=== PATIENT | female | born 2000 | race Caucasian/White ===

== ENCOUNTER 2022-04-28 20:17 | Outpatient (CLI) | payer OTHER, SELFPAY ==
[2022-04-28 20:57] VITALS: BMI 32.3
[2022-04-28 21:03] LABS: Microscopic, Urine URINE MICROSCOPIC (MICROSCOPIC)
[2022-04-28 21:04] LABS: Appearance,Urine CLEAR (Clear); Bilirubin,Urine Negative (Negative); Blood, Urine Negative (Negative); Color,Urine YELLOW (Yellow); Glucose,Urine (UA) Negative (Negative); Ketones,Urine Negative (Negative); Leukocyte Esterase,Urine Negative (Negative); Nitrate,Urine Negative (Negative); Protein,Urine Negative (Negative); Urobilinogen,Urine 0.2 EU/dl (0.2)
[2022-04-28 21:15] LABS: Amphetamine/Metha Screen,Urine Negative ng/ml (<1000)
[2022-04-28 21:16] LABS: Barbiturates Screen,Urine Negative ng/ml (<200); Benzodiazepines Screen,Urine Negative ng/ml (<200)
[2022-04-28 21:17] VITALS: BP 133/65; PULSE 77; RESP 18; TEMP 36.7; BMI 32.3
[2022-04-28 21:17] LABS: Cannabinoid Screen,Urine Positive ng/ml (<50); Cocaine Screen,Urine Negative ng/ml (<300)
[2022-04-28 21:18] LABS: Methadone Screen,Urine Negative ng/ml (<300)
[2022-04-28 21:19] LABS: Opiate Screen,Urine Negative ng/ml (<300); Phencyclidine Screen,Urine Negative ng/ml (<25)
[2022-04-28 21:35] LABS: Amorphous Sediment,Urine 1+ /lpf; Bacteria,Urine Trace /lpf; RBC,Urine Occasional #/hpf (0-3); WBC,Urine Occasional #/hpf (0-3)
== END 2022-04-28 21:34 | disposition home or self-care (01) ==
LOC: OBOUT 20:21 → OB 20:21
PROVIDERS: Visit Provider Obstetrics & Gynecology
DX: O26.892 Other specified pregnancy related conditions, second trimester (principal); Z3A.22 22 weeks gestation of pregnancy; R10.32 Left lower quadrant pain
CPT/HCPCS: 80305; 81001; G0463

== ENCOUNTER 2022-05-11 23:48 | Emergency (ER) | payer OTHER, SELFPAY ==
[2022-05-12 00:04] VITALS: BP 154/85; PULSE 121; RESP 18; TEMP 36.6; O2SAT 100; BMI 34.1
[2022-05-12 00:17] LABS: Coronavirus 19, PCR Not Detected (NotDetected); Influenza A, PCR Not Detected (NotDetected); Influenza B, PCR Not Detected (NotDetected); Microscopic, Urine URINE MICROSCOPIC (MICROSCOPIC)
[2022-05-12 00:19] LABS: Appearance,Urine SL CLOUDY (Clear); Bilirubin,Urine Negative (Negative); Blood, Urine Negative (Negative); Color,Urine YELLOW (Yellow); Glucose,Urine (UA) Negative (Negative); Ketones,Urine Negative (Negative); Leukocyte Esterase,Urine Negative (Negative); Nitrate,Urine Negative (Negative); PH,Urine 6.5 (5.0-8.5); Protein,Urine Negative (Negative); Specific Gravity, Urine 1.025 (1.005-1.030); Urobilinogen,Urine 0.2 EU/dl (0.2)
[2022-05-12 00:25] LABS: Bacteria,Urine Trace /lpf; Squamous Epithelial Cell,Urine Occasional #/hpf (0-5); WBC,Urine Occasional #/hpf (0-3)
[2022-05-12 00:26] LABS: Strep Scrn Group A (Rapid) Negative (Negative)
--- NOTE | 2022-05-12 00:42 | HMH.EDURI ---
Discharge Plan Disposition Patient Disposition: Home, Self-Care Chief Complaint: Upper Respiratory Infection Prescriptions Prescriptions: No Action phentermine [Adipex-P] 37.5 mg tablet 37.5 mg PO DAILY Qty: 30 0RF Rx Instructions: must administer 30 minutes before or 1-2 hours after breakfast Referrals Follow up/Referrals: Provider,MD Delroy [Primary Care Provider] - See instructions Nima Juan MD [Staff Physician] - See instructions Clinical Impressions Clinical Impression: Upper respiratory infection, Instructions Patient Instructions: DI for Viral Upper Respiratory Infection -- Adult Discharge ED Provider: Antoine Albrecht URI/Sore Throat HPI General Chief Complaint: Upper Respiratory Infection Stated Complaint: dry cough,MAYA,vomiting,sore ,runnynose,throat Time Seen by Provider: 05/12/22 00:42 Mode of Arrival: Ambulatory Source of Information: Patient and Medical Record Limitations: No Limitations Description of Symptoms (Recalled from ER Triage Doc. by RN): Pt c/o sore throat, headache, bodyaches, runny nose, fever and that everyone in her family currently has the flu. History of Present Illness HPI Narrative: achey with uri sx and exposure to flu - is 7 months Complaint: fever and cough Onset (ago): day(s) Duration: intermittent Severity: moderate Able to tolerate fluids by mouth: Yes Context: sick contacts Related Data Previous Rx's Medication Instructions Recorded phentermine 37.5 mg tablet 37.5 mg PO DAILY #30 tabs 03/25/20 (Adipex-P) Allergies Allergy/AdvReac Type Severity Reaction Status Date / Time penicillin G Allergy Mild Rash Verified 03/25/20 14:20 PFSH PFSH Social History Smoking Status: Former smoker alcohol intake: never substance use type: denies use current occupational status: unemployed Travel in the last 8 weeks: None household members: family housing: house ROS Obtained: Yes All systems reviewed & no additional complaints except as documented Physical Exam General General appearance: alert Head Head exam: normocephalic Eye Eye exam: Present PERRL and EOMI; Absent scleral icterus ENT ENT exam: Present normal oropharynx, mucous membranes moist and TM's normal bilaterally Neck Neck exam: Present full ROM Respiratory Respiratory exam: Present normal lung sounds bilaterally; Absent respiratory distress Cardiovascular Cardiovascular exam: Present regular rate Abdominal Exam Abdominal exam: Present soft Extremities Exam Extremities exam: Present full ROM Neurological Exam Neurological exam: Present alert, oriented X3 and CN II-XII intact; Absent motor sensory deficit Psychiatric Psychiatric exam: Present normal affect Skin Skin exam: Absent rash Medical Decision Making Medical Records Medical records reviewed: Yes I reviewed the patient's medical records. Jarad Inquiry Pt receiving controlled substance: No Vital Signs: 05/12/22 00:04 Temperature 98 F Temperature Source Oral Pulse Rate [Apical] 121 H Respiratory Rate 18 Blood Pressure [Right Arm] 154/85 H Blood Pressure Mean [Right Arm] 108 Blood Pressure Source [Right Arm] Automatic Cuff Blood Pressure Position [Right Arm] Sitting 02 Sat by Pulse Oximetry 100 Oxygen Delivery Method Room Air Lab Data Lab results reviewed: Yes I reviewed the patient's lab results. Lab Results 05/12/22 00:00: SARS-CoV-2 (PCR) Not detected, Influenza A Untype (PCR) Not detected, Influenza Type B (PCR) Not detected 05/12/22 00:00: Group A Strep Rapid Negative 05/12/22 00:00: Urine Color Yellow, Urine Appearance Sl cloudy, Urine pH 6.5, Ur Specific [place] 1.025, Urine Protein Negative, Urine Glucose (UA) Negative, Urine Ketones Negative, Urine Blood Negative, Urine Nitrate Negative, Urine Bilirubin Negative, Urine Urobilinogen 0.2, Ur Leukocyte Esterase Negative, Urine RBC None, Urine WBC Occasional, Ur Squamous Epith Cells Occasional, Urine Bacteria Trac
--- NOTE | 2022-05-12 01:10 | PC.NURSE ---
heart tones detected and noted to be 145.
[2022-05-12 01:11] LABS: Adenovirus,PCR Not Detected (NotDetected); Bordetella Pertussis Not Detected (NotDetected); Chlamydophila Pneumoniae, PCR Not Detected (NotDetected); Coronavirus 19, PCR Not Detected (NotDetected); Coronavirus 229E Not Detected (NotDetected); Coronavirus NL63 Not Detected (NotDetected); Coronavirus OC43 Not Detected (NotDetected); Coronovirus HKU1,PCR Not Detected (NotDetected); Human Metapneumovirus Not Detected (NotDetected); Influenza A, PCR Not Detected (NotDetected); Influenza AH1, 2009 Not Detected (NotDetected); Influenza AH1, PCR Not Detected (NotDetected); Influenza AH3,PCR Not Detected (NotDetected); Influenza B, PCR Not Detected (NotDetected); Mycoplasma Pneumoniae, PCR Not Detected (NotDetected); Parainfluenza 1, PCR Not Detected (NotDetected); Parainfluenza 2, PCR Not Detected (NotDetected); Parainfluenza 3, PCR Not Detected (NotDetected); Parainfluenza 4, PCR Not Detected (NotDetected); Respiratory Syncytial Virus Not Detected (NotDetected)
[2022-05-12 01:23] VITALS: BP 154/85; PULSE 118; RESP 18; TEMP 36.6; O2SAT 98
[2022-05-12 03:07] LABS: Rhinovirus/Enterovirus Detected (NotDetected)
== END 2022-05-12 01:38 | disposition home or self-care (01) ==
PROVIDERS: Emergency Provider Emergency Medicine
DX: O99.513 Diseases of the respiratory system complicating pregnancy, third trimester (principal); J06.9 Acute upper respiratory infection, unspecified; B34.8 Other viral infections of unspecified site
CPT/HCPCS: 81001; 87430; 87581; 87632; 87798; 99283; C9803; U0003; U0005

== ENCOUNTER 2022-06-06 14:51 | Outpatient (CLI) | payer OTHER, SELFPAY ==
[2022-06-06 15:15] VITALS: BMI 35.7
[2022-06-06 15:16] VITALS: BMI 35.7
[2022-06-06 15:18] VITALS: BMI 35.7
[2022-06-06 15:24] LABS: Microscopic, Urine URINE MICROSCOPIC (MICROSCOPIC)
[2022-06-06 15:29] LABS: Appearance,Urine SL CLOUDY (Clear); Bilirubin,Urine Negative (Negative); Blood, Urine Negative (Negative); Color,Urine YELLOW (Yellow); Glucose,Urine (UA) Negative (Negative); Ketones,Urine TRACE (Negative); Leukocyte Esterase,Urine 1+ (Negative); Nitrate,Urine Negative (Negative); PH,Urine 6.5 (5.0-8.5); Protein,Urine Negative (Negative); Specific Gravity, Urine 1.025 (1.005-1.030); Urobilinogen,Urine 0.2 EU/dl (0.2)
[2022-06-06 15:54] LABS: Bacteria,Urine 2+ /lpf
[2022-06-06 17:13] LABS: Amphetamine/Metha Screen,Urine Negative ng/ml (<1000); Benzodiazepines Screen,Urine Negative ng/ml (<200)
[2022-06-06 17:14] LABS: Barbiturates Screen,Urine Negative ng/ml (<200)
[2022-06-06 17:15] LABS: Cannabinoid Screen,Urine Negative ng/ml (<50); Cocaine Screen,Urine Negative ng/ml (<300)
[2022-06-06 17:16] LABS: Methadone Screen,Urine Negative ng/ml (<300); Opiate Screen,Urine Negative ng/ml (<300)
[2022-06-06 17:17] LABS: Phencyclidine Screen,Urine Negative ng/ml (<25)
== END 2022-06-06 15:59 | disposition home or self-care (01) ==
LOC: OBOUT 14:54 → OB 14:55
PROVIDERS: Visit Provider Obstetrics & Gynecology
DX: O26.893 Other specified pregnancy related conditions, third trimester (principal); Z3A.28 28 weeks gestation of pregnancy
CPT/HCPCS: 80305; 81001; 87086

== ENCOUNTER → 2022-06-21 11:33 | Outpatient (CLI) | payer OTHER, SELFPAY ==
[2022-06-21 12:17] LABS: Basophils % 0.3 % (0.1-2.0); Eosinophils # 0.1 K/mm3 (0.0-0.4); Eosinophils % 1.6 % (0.1-12.0); Hematocrit 34.3 % (37.0-47.0); Hemoglobin 11.3 g/dL (12.2-16.2); Lymphocytes # 1.9 K/mm3 (0.7-4.5); Lymphocytes % 21.6 % (10-50); Mean Corpuscular Hemoglobin 28.2 pg (27.0-31.2); Mean Corpuscular Volume 85.4 fl (81-99); Mean Platelet Volume 7.6 fl (7.4-10.4); Monocytes # 0.4 K/mm3 (0.1-1.0); Neutrophils # 6.4 K/mm3 (1.8-7.8); Neutrophils % 71.6 % (37.0-80.0); Platelet Count 323 K/mm3 (142-424); Red Blood Count 4.01 M/mm3 (4.20-5.40); Red Cell Distribution Width 14.4 % (11.5-17.5); White Blood Count 8.9 K/mm3 (4.8-10.8)
[2022-06-21 12:36] LABS: Glucose,Fasting 91 mg/dl (74-100)
[2022-06-21 14:08] LABS: Glucose 1 Hour 105 mg/dL (74-100)
[2022-06-23 08:01] LABS: Rubella Antibodies, IgG <0.90 index (Immune >0.99)
[2022-06-28 21:44] LABS: HIV Screen 4th Generation wRfx NON REACTIVE; Hepatitis C Antibody <0.1
[2022-06-28 21:45] LABS: Hepatitis B Surface Antigen NEGATIVE
== END ==
PROVIDERS: Visit Provider Obstetrics & Gynecology
DX: Z34.90 Encounter for supervision of normal pregnancy, unspecified, unspecified trimester (principal)
CPT/HCPCS: 36415; 82951; 85025; 86593; 86703; 86762; 86850; 87340; 87380; G0432

== ENCOUNTER → 2022-06-25 11:46 | Outpatient (CLI) | payer OTHER, SELFPAY ==
[2022-06-29 16:12] LABS: Treponema pallidum Ab (FTA-ABS Reactive (Non Reactive)
== END ==
PROVIDERS: Visit Provider Obstetrics & Gynecology
DX: A53.0 Latent syphilis, unspecified as early or late (principal)
CPT/HCPCS: 36415; 86780

== ENCOUNTER 2022-07-11 22:46 | Outpatient (CLI) | payer OTHER, SELFPAY ==
[2022-07-11 22:57] VITALS: BMI 36.8
[2022-07-11 23:05] LABS: Microscopic, Urine URINE MICROSCOPIC (MICROSCOPIC)
[2022-07-11 23:10] LABS: Appearance,Urine CLEAR (Clear); Bilirubin,Urine Negative (Negative); Blood, Urine Negative (Negative); Color,Urine YELLOW (Yellow); Glucose,Urine (UA) Negative (Negative); Ketones,Urine Negative (Negative); Leukocyte Esterase,Urine TRACE (Negative); Nitrate,Urine Negative (Negative); Protein,Urine Negative (Negative); Urobilinogen,Urine 0.2 EU/dl (0.2)
[2022-07-11 23:21] LABS: Barbiturates Screen,Urine Negative ng/ml (<200); Benzodiazepines Screen,Urine Negative ng/ml (<200)
[2022-07-11 23:22] LABS: Amphetamine/Metha Screen,Urine Negative ng/ml (<1000)
[2022-07-11 23:23] LABS: Cannabinoid Screen,Urine Negative ng/ml (<50); Cocaine Screen,Urine Negative ng/ml (<300)
[2022-07-11 23:24] LABS: Methadone Screen,Urine Negative ng/ml (<300)
[2022-07-11 23:25] LABS: Opiate Screen,Urine Negative ng/ml (<300); Phencyclidine Screen,Urine Negative ng/ml (<25); WBC,Urine Occasional #/hpf (0-3)
[2022-07-12] VITALS: BP 127/74; PULSE 103; RESP 18; TEMP 37.1; O2SAT 98; BMI 36.8
== END 2022-07-12 01:35 | disposition home or self-care (01) ==
LOC: OBOUT 22:50 → OB 22:51
PROVIDERS: Visit Provider Obstetrics & Gynecology
DX: O36.8130 Decreased fetal movements, third trimester, not applicable or unspecified (principal); Z3A.33 33 weeks gestation of pregnancy
CPT/HCPCS: 59025; 80305; 81001; 96365; G0463

== ENCOUNTER → 2022-07-29 13:25 | Outpatient (CLI) | payer OTHER, SELFPAY | PROVIDERS: Visit Provider Nurse Practitioner Obstetrics & Gynecology | DX: Z34.90 Encounter for supervision of normal pregnancy, unspecified, unspecified trimester (principal) | CPT/HCPCS: 86403 ==

== ENCOUNTER 2022-08-05 20:59 | Outpatient (CLI) | payer OTHER, SELFPAY ==
[2022-08-05 21:05] VITALS: BMI 37.5
[2022-08-05 21:15] LABS: Microscopic, Urine URINE MICROSCOPIC (MICROSCOPIC)
[2022-08-05 21:18] LABS: Appearance,Urine CLEAR (Clear); Bilirubin,Urine Negative (Negative); Blood, Urine Negative (Negative); Color,Urine YELLOW (Yellow); Glucose,Urine (UA) Negative (Negative); Ketones,Urine Negative (Negative); Leukocyte Esterase,Urine Negative (Negative); Nitrate,Urine Negative (Negative); PH,Urine 7.5 (5.0-8.5); Protein,Urine Negative (Negative); Specific Gravity, Urine 1.015 (1.005-1.030)
[2022-08-05 21:35] LABS: Amphetamine/Metha Screen,Urine Negative ng/ml (<1000); Barbiturates Screen,Urine Negative ng/ml (<200); Benzodiazepines Screen,Urine Negative ng/ml (<200); Cannabinoid Screen,Urine Negative ng/ml (<50); Cocaine Screen,Urine Negative ng/ml (<300); Methadone Screen,Urine Negative ng/ml (<300); Opiate Screen,Urine Negative ng/ml (<300); Phencyclidine Screen,Urine Negative ng/ml (<25)
[2022-08-05 22:36] LABS: Bacteria,Urine Trace /lpf; Yeast,Urine Occasional /lpf
== END 2022-08-05 22:04 | disposition home or self-care (01) ==
LOC: OBOUT 21:00 → OB 21:02
PROVIDERS: Visit Provider Obstetrics & Gynecology
DX: O26.893 Other specified pregnancy related conditions, third trimester (principal); Z3A.36 36 weeks gestation of pregnancy
CPT/HCPCS: 59025; 80305; 81001

== ENCOUNTER 2022-08-22 16:28 | Inpatient (IN) | payer OTHER, SELFPAY ==
[2022-08-22 16:37] VITALS: BMI 37.9
[2022-08-22 17:33] LABS: Microscopic, Urine URINE MICROSCOPIC (MICROSCOPIC)
[2022-08-22 17:33] LABS: Coronavirus 19, PCR Not Detected (NotDetected); Influenza A, PCR Not Detected (NotDetected); Influenza B, PCR Not Detected (NotDetected)
[2022-08-22 17:38] LABS: Appearance,Urine CLEAR (Clear); Blood, Urine Negative (Negative); Color,Urine DK YELLOW (Yellow); Glucose,Urine (UA) Negative (Negative); Ketones,Urine TRACE (Negative); Leukocyte Esterase,Urine Negative (Negative); Nitrate,Urine Negative (Negative); Protein,Urine TRACE (Negative); Specific Gravity, Urine >= 1.030 (1.005-1.030)
[2022-08-22 17:39] LABS: Bilirubin,Urine 1+ (Negative)
[2022-08-22 17:43] LABS: Basophils % 0.4 % (0.1-2.0); Eosinophils # 0.1 K/mm3 (0.0-0.4); Eosinophils % 1.1 % (0.1-12.0); Hematocrit 37.9 % (37.0-47.0); Hemoglobin 12.7 g/dL (12.2-16.2); Lymphocytes # 1.9 K/mm3 (0.7-4.5); Lymphocytes % 19.6 % (10-50); Mean Corpuscular HGB Conc 33.5 g/dL (31.8-35.4); Mean Corpuscular Hemoglobin 28.5 pg (27.0-31.2); Mean Corpuscular Volume 85.1 fl (81-99); Mean Platelet Volume 7.6 fl (7.4-10.4); Monocytes # 0.5 K/mm3 (0.1-1.0); Neutrophils # 7.2 K/mm3 (1.8-7.8); Neutrophils % 73.9 % (37.0-80.0); Platelet Count 360 K/mm3 (142-424); Red Blood Count 4.45 M/mm3 (4.20-5.40); Red Cell Distribution Width 15.1 % (11.5-17.5); White Blood Count 9.7 K/mm3 (4.8-10.8)
[2022-08-22 17:51] LABS: Barbiturates Screen,Urine Negative ng/ml (<200); Benzodiazepines Screen,Urine Negative ng/ml (<200)
[2022-08-22 17:52] LABS: Amphetamine/Metha Screen,Urine Negative ng/ml (<1000); Methadone Screen,Urine Negative ng/ml (<300)
[2022-08-22 17:53] LABS: Cannabinoid Screen,Urine Negative ng/ml (<50)
[2022-08-22 17:54] LABS: Cocaine Screen,Urine Negative ng/ml (<300); Opiate Screen,Urine Negative ng/ml (<300)
[2022-08-22 17:55] LABS: Phencyclidine Screen,Urine Negative ng/ml (<25)
[2022-08-22 18:17] VITALS: BP 128/66; PULSE 119; RESP 16; TEMP 37.1; O2SAT 96; BMI 37.9
[2022-08-22 18:59] LABS: Bacteria,Urine 1+ /lpf; Calcium Oxalate Crystals,Urine 2+ /lpf; Mucus,Urine 1+ /lpf
[2022-08-22 20:20] VITALS: BP 116/64; PULSE 88; RESP 18; TEMP 36.9; O2SAT 96
--- NOTE | 2022-08-23 05:38 | EXP.LABOR.NO ---
Labor Note Subjective: Date: 08/23/22 Time: 05:38 regular contraction Objective: NST:: Reactive Contractions:: every 2-3 minutes Cervical Dilation:: 9-10 Effacement:: 100% Station: +3 Membranes: artificially ruptured Fetus: Monitoring?: Yes monitoring type:: External Assessment: Labor progressing?: Yes Cephalopelvic disproportion?: No All Active Problems (Updated 08/16/22 @ 09:48 by Nima Juan MD) Syphilis affecting (Acute) Rubella non-immune status, antepartum (Acute) with insufficient care (Acute) Maternal obesity affecting , antepartum (Acute) Insufficient care in third trimester (Acute) Upper respiratory infection (Acute) (Acute) Plan: Anesthesia for epidural?: Yes Continue to labor down?: Yes Plan for ?: No Continue to monitor?: Yes Start pushing?: Yes Comment:: I ruptured membranes and there was clear fluid. She was fully dilated station +3. We will have her go ahead and start pushing. We will expect a vaginal delivery. There seems to be an affirm.
--- NOTE | 2022-08-23 06:06 | EXP.DN ---
Delivery Note Delivery Date:: 08/23/22 Delivery Time:: 05:45 Anesthesia Type: Epidural Was labor medically induced?: Yes Induction method: per misoprostol protocol Gestational age (weeks): 39 Infant delivered prior to 39 weeks?: No Gender: Female at 1 minute: 7 at 5 minutes: 9 LAC or MLE?: LAC Delivery Procedure:: She is a 22-year-old 1 para 0 at 39+ weeks gestational age. She was brought in for induction of labor at term. She had misoprostol placed and under labor epidural progressed to full dilation. She was fully dilated had her membranes ruptured and she spontaneously delivered a liveborn female child 5:45 AM on the morning of August 23, 2022. On delivery the head the anterior shoulder then delivered followed by the rest the infant's body atraumatically. Baby was vigorous and the oropharynx and nasopharynx were bulb suction. We allowed the cord to continue to pulsate for approximately 1 minute. The cord was then doubly clamped and cut and the infant was placed on the mother's abdomen for further care. The nurses assigned Apgars of 7 at 1 minute and 9 at 5 minutes. We then obtained cord blood. She received IV oxytocin using gentle traction on the cord and countertraction the fundus I was able to easily deliver the placenta intact. It had a normal three-vessel cord. She had a small vaginal laceration that was repaired with interrupted 3-0 Vicryl Rapide suture. She had a left labial tear that was also repaired with interrupted 3-0 Vicryl Rapide suture. She has B+ blood type. She is rubella immune and was group B streptococcus negative. 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 Her estimated blood loss was approximately 200 cc. Laceration:: vaginal and labial Placental Delivery Description: Spontaneous
--- NOTE | 2022-08-23 07:13 | P.CONPHA_ITS ---
Pharmacy Intervention Comments: MEDICATION RECONCILIATION COMPLETED ON PATIENT USING EXTERNAL FILL HISTORY FROM PHARMACY AND LIST FROM [employer] [facility]PER[facility] OFFICE. -GLORIA VALDEZD
--- NOTE | 2022-08-23 07:13 | HMH.PHAINT1 ---
Pharmacy Intervention Comments: MEDICATION RECONCILIATION COMPLETED ON PATIENT USING EXTERNAL FILL HISTORY FROM PHARMACY AND LIST FROM LABORER [facility] [facility]ATCH[employer] OFFICE. -GLORIA VALDEZD
--- NOTE | 2022-08-23 07:26 | P.PN_ITS ---
[facility] Disclaimer: The information contained in this section may have been updated after the patient was seen, as this information can be updated by other users. Medical History Asthma Maternal obesity affecting , antepartum with insufficient care Rubella non-immune status, antepartum Social History Smoking Status: Former smoker alcohol intake: never substance use type: denies use current occupational status: unemployed Travel in the last 8 weeks: None household members: family housing: house [facility] Anesthesia Checklist Patient Identification Patient Identification: Verbal (Name & ) Structural Data Admitted From: Inpatient Planned Operative Procedure/s: labor epidural Consent for Planned Operative Procedure(s) Verified: Yes Airway Assessment C-Spine Mobility Assessed: Yes TMJ Mobility Assessed: Yes Dentition: Good Dentition Neurological Assessment Level of Consciousness: Awake, Alert and Appropriate Anesthesia Plan Anesthesia Risk discussed: Yes Anesthesia Plan: Verified ASA Class: II Anesthesia Type: Epidural
--- NOTE | 2022-08-23 08:37 | EXP.HP ---
History of Present Illness *Admission Date: 08/22/22 *Reason for visit:: Term induction *History of present illness: She is a 22-year-old 1 now para 0 at 39+ weeks gestational age. She was anxious to be delivered so we elected to induce her labor at term. She does have a history of syphilis during the . She was treated with 3 doses of penicillin. [facility] Disclaimer: The information contained in this section may have been updated after the patient was seen, as this information can be updated by other users. Medical History Asthma Maternal obesity affecting , antepartum with insufficient care Rubella non-immune status, antepartum Social History Smoking Status: Former smoker alcohol intake: never substance use type: denies use current occupational status: unemployed Travel in the last 8 weeks: None household members: family housing: house Review of Systems Review of Systems Review of systems:: pertinent systems reviewed and negative unless documented below Meds Home Medications and Allergies Home Medications Medication Instructions Recorded Confirmed Type aspirin 81 mg tablet,delayed 81 mg PO DAILY preventative 07/08/22 08/22/22 History release (Adult Aspirin Regimen) ferrous sulfate 325 mg (65 mg 325 mg PO DAILY Supplement 08/22/22 08/22/22 History iron) tablet prenat.vits,alber,[id number] 1 tab PO DAILY Supplement 08/22/22 08/22/22 History New Prescriptions to Start Prescriptions: Allergies Allergy/AdvReac Type Severity Reaction Status Date / Time No Known Drug Allergies Allergy Verified 08/16/22 09:08 Exam Data for Last 24 hours Vital signs and Labs for Last 24 Hours: Temp Pulse Resp BP Pulse Ox 98.4 F 88 18 116/64 96 08/22/22 20:20 08/22/22 20:20 08/22/22 20:20 08/22/22 20:20 08/22/22 20:20 Laboratory Results - last 24 hr 08/22/22 16:45: Urine Opiates Screen Negative, Urine Methadone Screen Negative, Ur Barbituates Screen Negative, Ur Phencyclidine Scrn Negative, Ur Amphetamines Screen Negative, U Benzodiazepines Scrn Negative, Urine Cocaine Screen Negative, U Marijuana (THC) Screen Negative 08/22/22 16:45: Urine Color Dk yellow, Urine Appearance Clear, Urine pH 6.0, Ur Specific [place] >= 1.030, Urine Protein Trace, Urine Glucose (UA) Negative, Urine Ketones Trace, Urine Blood Negative, Urine Nitrate Negative, Urine Bilirubin 1+ A, Urine Urobilinogen 1.0, Ur Leukocyte Esterase Negative, Urine RBC None, Urine WBC 5-10, Ur Squamous Epith Cells 10-20, Calcium Oxalate Crystal 2+, Urine Bacteria 1+, Urine Mucus 1+ 08/22/22 17:00: WBC 9.7, RBC 4.45, Hgb 12.7, Hct 37.9, MCV 85.1, MCH 28.5, MCHC 33.5, RDW 15.1, Plt Count 360, MPV 7.6, Neut % (Auto) 73.9, Lymph % (Auto) 19.6, [place] % (Auto) 5.0, Eos % (Auto) 1.1, Baso % (Auto) 0.4, Neut # (Auto) 7.2, Lymph # (Auto) 1.9, [place] # (Auto) 0.5, Eos # (Auto) 0.1, Baso # (Auto) 0.0 08/22/22 17:00: Blood Type B Positive, Antibody Screen Negative 08/22/22 17:03: SARS-CoV-2 (PCR) Not detected, Influenza A Untype (PCR) Not detected, Influenza Type B (PCR) Not detected I & O for Last 24 hours: Intake & Output 08/20/22 08/21/22 08/22/22 08/23/22 11:59 11:59 11:59 11:59 Weight 228 lb Constitutional Constitutional: no acute distress *Routine HEENT Exam Head: Present normocephalic Eye: Present EOMI and PERRL ENT: Present mucous membranes moist *Routine Neck Exam Neck: Present supple; Absent lymphadenopathy *Routine Respiratory Exam Respiratory: Present CTA bilaterally *Routine Cardiovascular Exam Cardiovascular: Present RRR *Routine Abdominal Exam Abdominal: Present soft and normoactive bowel sounds; Absent tenderness *Routine Rectal Exam Rectal:: deferred *Routine Genitalia Exam Genitalia:: deferred *Routine Extremities Exam Extremities: Absent cyanosis,
--- NOTE | 2022-08-23 11:18 | SW/DCPLANNER ---
Addendum entered by Ashley Ribera 08/26/22 08:48: Infant cord screen is NEGATIVE. Original Note: I received a referral on this patient regarding: late care at 28 weeks and positive THC use. Patient tested positive for THC on 04/28/22 and was negative on the following dates: 06/06/22, 07/11/22, 08/05/22 and admission 08/22/22. Infant's urine has not been collected at this time. Patient stated that she began care at 6 weeks at w/ Dr Hayes and had ultra sounds from 6-20+ weeks. Patient stated at 28 weeks she moved to [place] and established care w/ Dr Juan. Patient admits to THC use but stated that she stopped in January. Patient delivered infant female (Jacoby Montgomery) on 08/23/22. Patient stated that infant's father (Juno Montgomery 09/24/00) is involved. This is patient's first child. Patient, , patient's sister (Magalys Estrella) and cousin (Delia Estrella) plus Delia's seven month old will reside at [address] [place] [address] in [place]. Patient's contact number is [phone]. Patient is willing to speak with HANDS: I will reach out to Chad [facility]qbal/ HANDS Dept today. Patient is established with [facility]. Mat Machine Tender will be Dr Burroughs/Dr Whalen. Patient is expected to discharge home on 08/25/22. Patient has no further needs/questions at this time.
[2022-08-23 16:04] VITALS: BP 124/77; PULSE 77; RESP 17; TEMP 36.8; O2SAT 97
[2022-08-23 20:05] VITALS: BP 120/79; PULSE 89; RESP 18; TEMP 36.8; O2SAT 96
[2022-08-24 04:07] VITALS: BP 118/56; PULSE 75; RESP 17; TEMP 36.9; O2SAT 97
[2022-08-24 07:03] LABS: Hematocrit 32.3 % (37.0-47.0); Hemoglobin 10.8 g/dL (12.2-16.2)
[2022-08-24 08:00] VITALS: BP 132/64; PULSE 75; RESP 18; TEMP 36.8; O2SAT 96
--- NOTE | 2022-08-24 10:59 | EXP.ACUTE.PN ---
Subjective *Date: 08/24/22 *Time: 08:30 Interval history: She continues to do well. She is eating and drinking and ambulating. She is breast-feeding. Her lochia is normal. She denies any pain. Medical Exam Vital signs and Labs for Last 24 Hours: Vital Signs Temp Pulse Resp BP Pulse Ox 08/24/22 08:00 98.3 F 75 18 132/64 96 08/24/22 04:07 98.4 F 75 17 118/56 L 97 08/23/22 20:05 98.3 F 89 18 120/79 96 08/23/22 16:04 98.2 F 77 17 124/77 97 Laboratory Results - last 24 hr 08/24/22 06:40: Hgb 10.8 L, Hct 32.3 L I & O for Labs for Last 24 Hours: Intake & Output 08/21/22 08/22/22 08/23/22 08/24/22 11:59 11:59 11:59 11:59 Weight 228 lb Head: Present atraumatic ENT: Present normal exam Neck: Present normal inspection Respiratory: Present normal respiratory effort; Absent accessory muscle use Assessment and Plan *Assessment and plan (1) Maternal obesity affecting , antepartum: Status: Acute Category: Medical Code(s): O99.210 - Obesity complicating , unspecified trimester (2) Rubella non-immune status, antepartum: Status: Acute Category: Medical Code(s): O09.899 - Supervision of other high risk pregnancies, unspecified trimester; Z28.39 - Other underimmunization status (3) Normal delivery: Status: Acute Category: Medical Code(s): O80 - Encounter for full-term uncomplicated delivery Plan She continues to do well. Her breast-feeding is doing well. We will plan to send her home tomorrow.
[2022-08-24 12:13] LABS: Rapid Plasma Reagin Ab Titer Non Reactive (NonRea<1:1)
[2022-08-24 16:24] VITALS: BP 127/74; PULSE 87; RESP 18; TEMP 36.8; O2SAT 99
[2022-08-24 20:21] VITALS: BP 119/73; PULSE 81; RESP 18; TEMP 37.2; O2SAT 98
[2022-08-25 03:55] VITALS: BP 126/73; PULSE 65; RESP 16; TEMP 37.1; O2SAT 97
--- NOTE | 2022-08-25 08:26 | EXP.DC.SUM ---
General Admission date:: 08/22/22 Discharge date: 08/25/22 HPI HPI HPI: She is a 22-year-old 1 now para 0 at 39+ weeks gestational age. She was anxious to be delivered so we elected to induce her labor at term. She does have a history of syphilis during the . She was treated with 3 doses of penicillin. Hospital Course Hospital Course Hospital Course: She was started on Cervidil on the evening of August 22, 2022. Overnight she progressed to full dilation and delivered spontaneously a liveborn female child at 5:45 AM on the morning of August 23, 2022. The baby had Apgars of 7 at 1 minute and 9 at 5 minutes. She weighed 8 pounds. She has done well and has remained afebrile without her hospitalization. She is eating and drinking and ambulating. She is breast-feeding. She has B+ blood, she is rubella non-immune and was group B streptococcus negative. She had an RPR for syphilis in hospital that was negative. She is discharged home to follow-up with me in approximately 2 weeks time. She will continue with her vitamins and iron. Her condition on discharge is stable and improved. Exam Data for Last 24 hours Vital signs and Labs for Last 24 Hours: Temp Pulse Resp BP Pulse Ox 98.8 F 65 16 126/73 97 08/25/22 03:55 08/25/22 03:55 08/25/22 03:55 08/25/22 03:55 08/25/22 03:55 Laboratory Results - last 24 hr 08/23/22 09:35: RPR Titer Non reactive I & O for Last 24 hours: Intake & Output 08/22/22 08/23/22 08/24/22 08/25/22 11:59 11:59 11:59 11:59 Weight 228 lb Constitutional Constitutional: no acute distress *Routine HEENT Exam Head: Present normocephalic *Routine Respiratory Exam Respiratory: Present normal respiratory effort; Absent accessory muscle use Results Data Completed and Pending Labs on day of discharge: Labs from last 24 hours 08/23/22 09:35 RPR Titer Non reactive DS: Diagnosis Discharge Diagnosis (1) Maternal obesity affecting , antepartum: Status: Acute (2) Rubella non-immune status, antepartum: Status: Acute (3) Normal delivery: Status: Acute Meds Home Medications and Allergies Home Medications Medication Instructions Recorded Confirmed Type aspirin 81 mg tablet,delayed 81 mg PO DAILY preventative 07/08/22 08/22/22 History release (Adult Aspirin Regimen) ferrous sulfate 325 mg (65 mg 325 mg PO DAILY Supplement 08/22/22 08/22/22 History iron) tablet prenat.vits,alber,[id number]-[id number] 1 tab PO DAILY Supplement 08/22/22 08/22/22 History New Prescriptions to Start Prescriptions: Allergies Allergy/AdvReac Type Severity Reaction Status Date / Time No Known Drug Allergies Allergy Verified 08/16/22 09:08 Discharge Plan Disposition Patient Disposition: Home, Self-Care Discharge Order Discharge Orders: Discharge Order (Routine); Ordered 08/25/22 Ordered By: Nima Juan Follow up Plan Follow up with: Nima Juan MD [Staff Physician] - 09/13/22 10:30 am Prescriptions/Medication Reconciliation: Continued aspirin [Adult Aspirin Regimen] 81 mg tablet,delayed release (DR/EC) 81 mg PO DAILY ferrous sulfate 325 mg (65 mg iron) tablet 325 mg PO DAILY prenat.vits,alber,[id number] Tablet 1 tab PO DAILY Problem Reconciliation Problems Reviewed?: Yes Patient Discharge Instructions ACTIVITY: No heavy lifting DIET: continue same diet Patient Instructions: Depression, Hemorrhage, DI for Labor and Delivery, Vaginal , DI for Pre-eclampsia, [facility] Post Discharge Instructions Providers Primary Care Provider: Provider,Referral Admit Provider: Nima Juan Attending Provider: Nima Juan
[2022-08-25 10:01] VITALS: BP 119/58; PULSE 78; RESP 18; TEMP 36.7; O2SAT 98
== END 2022-08-25 12:40 | disposition home or self-care (01) | DRG 807 ==
PROVIDERS: Admitting Provider Nurse Practitioner Obstetrics & Gynecology; Visit Provider Nurse Practitioner Obstetrics & Gynecology
DX: O70.0 First degree perineal laceration during delivery (principal); Z37.0 Single live birth; Z3A.39 39 weeks gestation of pregnancy; Z87.891 Personal history of nicotine dependence; O99.214 Obesity complicating childbirth
CPT/HCPCS: 59409; 36415; 59025; 80305; 81001; 85014; 85018; 85025; 86593; 86850; 90707; 94761; C9803; G0283; U0003; U0005

== ENCOUNTER 2022-10-28 20:52 | Emergency (ER) | payer OTHER, SELFPAY ==
[2022-10-28 20:53] VITALS: BP 144/88; PULSE 123; RESP 18; TEMP 37.8; O2SAT 98; BMI 36.1
[2022-10-28 21:26] LABS: Coronavirus 19, PCR Not Detected (NotDetected); Influenza A, PCR Not Detected (NotDetected); Influenza B, PCR Not Detected (NotDetected)
--- NOTE | 2022-10-28 21:27 | HMH.EDGENADL ---
Discharge Plan Disposition Patient Disposition: Home, Self-Care Condition: Good Prescriptions Prescriptions: New amoxicillin 500 mg capsule 500 mg PO BID 10 Days Qty: 20 0RF No Action hydrocortisone 1 % cream 1 applic topical TID PRN (Reason: itching) Qty: 28.4 0RF prenat.vits,alber,coa-[id number]-iquxw Tablet 1 tab PO DAILY Referrals Follow up/Referrals: Provider,Referral, MD [Primary Care Provider] - See instructions Activity Restrictions/Add. Instructions Additional Instructions/Restrictions: You were evaluated in the emergency department today and diagnosed with strep. Please pick pulling machine tender your prescription at the pharmacy and take as prescribed. Take Tylenol at home as needed for pain. Return to the emergency department for new or worsening symptoms. Clinical Impressions Clinical Impression: Acute streptococcal pharyngitis Instructions Patient Instructions: DI for Strep Throat Discharge ED Provider: Elizabeth Russell General Adult HPI General Chief complaint: Upper Respiratory Infection Stated complaint: sore throat,MAYA,body aches Time Seen by Provider: 10/28/22 21:25 Mode of Arrival: Ambulatory Source of Information: Patient Limitations: No Limitations Description of Symptoms (Recalled from ER Triage Doc. by RN): pt c/o sore throat, MAYA, body aches, fever History of Present Illness HPI narrative: This patient is a 22-year-old female presenting to the emergency department for evaluation of 1 day of sore throat, headache, body aches, and fever. No medications taken prior to arrival. She is currently breast-feeding. No other concerns noted at this time. She has had no difficulty swallowing, vomiting, changes in bowel movements, or other issues. She has still been eating and drinking fine. She has still been eating and drinking fine. Related Data Home Medications Medication Instructions Recorded Confirmed prenat.vits,alber,jfa-pfuo-mqvac 1 tab PO DAILY Supplement 08/22/22 09/23/22 Previous Rx's Medication Instructions Recorded hydrocortisone 1 % topical cream 1 applic topical TID PRN itching 10/26/22 #28.4 grams amoxicillin 500 mg capsule 500 mg PO BID 10 days #20 caps 10/28/22 Allergies Allergy/AdvReac Type Severity Reaction Status Date / Time No Known Drug Allergies Allergy Verified 10/26/22 10:15 [facility] Disclaimer: The information contained in this section may have been updated after the patient was seen, as this information can be updated by other users. Medical History Asthma Rubella non-immune status, antepartum Social History Smoking Status: Current every day smoker alcohol intake: never substance use type: denies use current occupational status: unemployed Travel in the last 8 weeks: None household members: family housing: house ROS Obtained: Yes All systems reviewed & no additional complaints except as documented 14 point review of systems obtained and negative except as mentioned in HPI. Physical Exam General General appearance: alert and in no apparent distress Head Head exam: atraumatic and normocephalic Eye Eye exam: Present normal appearance, PERRL and EOMI Expanded ENT Exam External ear exam: Present normal external inspection Nasal speculum exam: Bilateral: normal Mouth exam: Present normal external inspection; Absent drooling or trismus Throat exam: Present tonsillar erythema and tonsillar exudate; Absent R peritonsillar mass, L peritonsillar mass or muffled voice Neck Neck exam: Present normal inspection and full ROM Chest Chest inspection: Present normal inspection and symmetric chest wall rise Respiratory Respiratory exam: Present normal lung sounds bilaterally; Absent respiratory distress or wheezes Cardiovascular Cardiovascular exam: Present regular rate and normal rhythm Abdominal Exam Abdominal exam: Present soft; Ab
[2022-10-28 21:51] LABS: Strep Scrn Group A (Rapid) Positive (Negative)
[2022-10-28 22:03] VITALS: BP 134/74; PULSE 100; RESP 18; TEMP 37.6; O2SAT 98
== END 2022-10-28 22:11 | disposition home or self-care (01) ==
PROVIDERS: Emergency Provider Emergency Medicine
DX: J02.0 Streptococcal pharyngitis (principal); F17.200 Nicotine dependence, unspecified, uncomplicated
CPT/HCPCS: 87430; 99283; 99284; C9803; U0003; U0005